=== PATIENT | male | born 1945 | race Caucasian/White ===

== ENCOUNTER 2016-12-09 09:58 | Emergency (ER) | payer OTHER ==
--- NOTE | 2016-12-09 10:11 | EDM.PDOC ---
ED HPI GENERAL MEDICAL PROBLEM - General Chief Complaint: Skin Complaint Stated Complaint: LEFT SOCIAL FINGER, FISH HOOK Time Seen by Provider: 12/09/16 10:07 Source of Information: Reports: Patient, RN, RN Notes Reviewed History Limitations: Reports: No Limitations - History of Present Illness INITIAL COMMENTS - FREE TEXT/NARRATIVE: C/O fish hook stuck in left 3rd finger. Denies and other injury. Last tetanus vaccine >10yrs ago. Onset: Today Duration: Constant Location: Reports: Upper Extremity, Left Quality: Reports: Ache Severity: Mild Improves with: Reports: None Associated Symptoms: Reports: No Other Symptoms - Related Data Allergies Allergy/AdvReac Type Severity Reaction Status Date / Time No Known Allergies Allergy Verified 12/09/16 10:03 Home Meds: Home Meds Labetolol 12/09/16 [History] Lipitor 12/09/16 [History] Lisinopril 20 mg PO BID 12/09/16 [History] Lozol BID 12/09/16 [History] Past Medical History Cardiovascular History: Reports: High Cholesterol, Hypertension - Past Surgical History Respiratory Surgical History: Reports: Lung Resection Musculoskeletal Surgical History: Reports: ORIF Social & Family History - Family History Family Medical History: Noncontributory - Living Situation & Occupation Living situation: Reports: with Family ED ROS GENERAL - Review of Systems Review Of Systems: ROS reveals no pertinent complaints other than HPI. ED EXAM, SKIN/RASH Exam: See Below Exam Limited By: No Limitations General Appearance: Alert, WD/WN, No Apparent Distress Respiratory/Chest: No Respiratory Distress Cardiovascular: Normal Peripheral Pulses Extremities: Normal Range of Motion, Normal Capillary Refill, Other (fish hook to left 3rd finger) Neurological: Alert, Oriented, No Motor/Sensory Deficits Psychiatric: Normal Mood Skin: Warm, Dry ED SKIN PROCEDURES - Additional/Other Procedure(s) Other (Free Text) Procedure(s): Fish hook removal from left 3rd finger. Area cleaned and prepped by RN with hibiclens and sterile water. Area of fish hook locally blocked with lidocaine 1 % 5cc. Using clean tech. the eye of the hook and lure were cut free and removed with side cutter. The hook shank grasped with needle nosed plier and advanced until the hook and tan were exposed through the skin and removed with side cutter. The remaining hook backed out the entry wound. No residual foreign body. Wound was cleansed, and dried, bacitracin ointment applied, and dressing by RN. No complications. Course - Vital Signs Last Recorded V/S: Last Vital Signs Temp 36.4 C 12/09/16 10:07 Pulse 68 12/09/16 10:07 Resp 18 12/09/16 10:07 BP 168/82 H 12/09/16 10:07 Pulse Ox 97 12/09/16 10:07 - Orders/Labs/Meds Orders: Active Orders 24 hr Category Date Time Status Vaccines to be Administered [RC] PER UNIT ROUTINE Care 12/09/16 10:16 Active Meds: Medications Discontinued Medications Generic Name Dose Route Start Last Admin Trade Name Freq PRN Reason Stop Dose Admin Bacitracin 1 dose 12/09/16 10:16 Bacitracin Oint 1 Gm TOP 12/09/16 10:17 ONETIME ONE Diphtheria/Tetanus/Acell Pertussis 0.5 ml 12/09/16 10:16 Adacel IM 12/09/16 10:17 .ONCE ONE Lidocaine HCl 30 ml 12/09/16 10:16 Xylocaine-Mpf 1% INJECT 12/09/16 10:17 ONETIME ONE Lidocaine HCl Confirm 12/09/16 10:23 Xylocaine-Mpf 1% Administered 12/09/16 10:24 Dose 30 ml .ROUTE .STK-MED ONE Departure - Departure Time of Disposition: 10:35 Disposition: Home, Self-Care 01 Condition: Good Clinical Impression: Fish hook injury of finger of left hand Qualifiers: Encounter type: initial encounter Qualified Code(s): S69.92XA - Unspecified injury of left wrist, hand and finger(s), initial encounter - Discharge Information Instructions: Puncture Wound, [id number] Forms: ED Department Discharge Additional Instructions: Follow up in clinic or return to ER if any signs of infection develop. - My Orders Last 24 Hours: My Active Orders 12/09/16 10:16 Vaccines to be Administered [RC] PER UNIT ROUTINE - Assessment/Plan Last 24 Hours: My Active Orders 12/09/16 10:16 Vaccines to be Administered [RC] PER UNIT ROUTINE
[2016-12-09 10:14] VITALS: BP 168/82
[2016-12-09] MEDS ORDERED: Lidocaine 1% 30 ML SDV INJECT ONE (10:16)
[2016-12-09] MEDS ORDERED: Diphtheria,Pertussis(Acell),Tetanus Vaccine 0.5 ML SDV IM ONE (10:16)
[2016-12-09] MEDS ORDERED: Bacitracin Oint 1 GM U/D Packet TOP ONE (10:16)
[2016-12-09] MEDS ORDERED: Lidocaine 1% 30 ML SDV ONE (10:23)
== END 2016-12-09 10:43 | disposition home or self-care (01) ==
LOC: DL.ED 09:58
DX: S61.243A Puncture wound with foreign body of left middle finger without damage to nail, initial encounter (principal); Z23 Encounter for immunization; I10 Essential (primary) hypertension; E78.00 Pure hypercholesterolemia, unspecified; Z98.890 Other specified postprocedural states; W45.8XXA Other foreign body or object entering through skin, initial encounter
CPT/HCPCS: 90715; 99282